=== PATIENT | female | born 1955 | race Caucasian/White ===

== ENCOUNTER 2024-05-16 18:29 | Inpatient (IN) | payer MEDICARE, MEDICAID ==
[~2024-05-16] VITALS: Ht 162.6 cm; Wt 68.0 kg
[2024-05-16] MEDS ORDERED: heparin 10,000 units/1 ML INJ IV PRN (19:15)
[2024-05-16] MEDS ORDERED: heparin 25,000 UNIT/250ml bag 250 ML IV PRN (19:15)
[2024-05-16 19:31] LABS: BASOPHILS % (AUTO) 0.3 % (0-1); EOSINOPHILS % (AUTO) 0 % (0-6); HEMATOCRIT 40.7 % (35.0-45.0); HEMOGLOBIN 13.7 g/dl (12.0-16.0); LYMPHOCYTES # (AUTO) 0.7 X10'3 (1.1-4.8); LYMPHOCYTES % (AUTO) 6.7 % (21-51); MEAN CORPUSCULAR HEMOGLOBIN 31.4 PG (27.0-31.0); MEAN CORPUSCULAR HGB CONC 33.6 g/dL (33.0-36.5); MEAN CORPUSCULAR VOLUME 93.5 FL (78-98); MEAN PLATELET VOLUME 8.1 FL (7.4-10.4); MONOCYTES % (AUTO) 0.5 % (2-12); NEUTROPHILS # (AUTO) 9.4 X10'3 (1.8-7.7); NEUTROPHILS % (AUTO) 92.5 % (42-75); PLATELET COUNT 331 X10'3 (140-440); RED BLOOD COUNT 4.36 X10'6 (4.20-5.60); RED CELL DISTRIBUTION WIDTH 14.6 % (11.5-14.5); WHITE BLOOD COUNT 10.2 X10'3 (4.5-11.0)
[2024-05-16 19:42] LABS: APTT 54 SECONDS (22-32); INR 1.1 INR; PROTHROMBIN TIME 11.2 SECONDS (9.0-12.0)
[2024-05-16 19:46] LABS: ALANINE AMINOTRANSFERASE 31 U/L (12-78); ALKALINE PHOSPHATASE 98 IU/L (46-116); ANION GAP 8 (8-16); ASPARTATE AMINO TRANSFERASE 22 U/L (10-37); BILIRUBIN,TOTAL 0.3 MG/DL (0.1-1.0); BLOOD UREA NITROGEN 10 MG/DL (7-18); BUN/CREATININE RATIO 13.3 (10.0-20.0); CALCIUM 9.8 MG/DL (8.5-10.1); CHLORIDE 102 MMOL/L (99-107); CREATININE 0.75 MG/DL (0.40-0.90); GLUCOSE 154 MG/DL (70-104); POTASSIUM 4.4 MMOL/L (3.5-5.1); SODIUM 141 MMOL/L (135-145); TOTAL CARBON DIOXIDE 31.4 MMOL/L (24-32); TOTAL PROTEIN 8.2 G/DL (6.4-8.2); eCRCL 62 ML/MIN; eGFR 77 ML/MIN
[2024-05-16] MEDS: MESSAGE TO NURSING IV ONE (19:51)
[2024-05-16] MEDS: HEPARIN DRIP INITAL BOLUS --- DO NOT GIVE/ORDER MC ONE (19:51)
[2024-05-16] MEDS: heparin 25,000 UNIT/250ml bag 250 ML IV PRN (19:52)
[2024-05-16 19:54] LABS: PRO BRAIN NATRIURETIC PEPTIDE 1027 PG/ML (0-125)
[2024-05-16] MEDS ORDERED: magnesium sulf-water 2g/50mL 50 ML IV PRN (21:00)
[2024-05-16] MEDS ORDERED: potassium Cl 40MEQ/1/2NS 520ml 520 ML IV PRN (21:00)
[2024-05-16] MEDS ORDERED: ondansetron/PF 4mg/2ml inj IV PRN (21:00)
[2024-05-16] MEDS ORDERED: magnesium hydroxide 30ml (MOM) UD suspension PO PRN (21:00)
[2024-05-16] MEDS ORDERED: morphine 2 MG/ML inj. syringe IV PRN ×2 (21:00)
[2024-05-16] MEDS ORDERED: magnesium sulf-water 4G/100mL 100 ML IV PRN (21:00)
[2024-05-16] MEDS ORDERED: mag hydrox/Alum hydrox/simeth 30ml oral suspension PO PRN (21:00)
[2024-05-16] MEDS ORDERED: magnesium Cl slow-release 64mg tablet PO PRN (21:00)
[2024-05-16] MEDS ORDERED: potassium Cl 20 mEq SR tablet PO PRN ×2 (21:00)
[2024-05-16] MEDS: PERFLUTREN PROTEIN-A MICROSPHR (Optison) 0.22 MG/ML 3ML VIAL IV ONE (21:26)
[2024-05-16] MEDS ORDERED: metoprolol tartrate 50mg tablet PO SCH (22:00)
[2024-05-16] MEDS: ipratropium/albuterol 3ml nebule NEB PRN (22:48)
[2024-05-16 22:49] VITALS: PULSE 85; RESP 16; O2SAT 97
[2024-05-16 22:55] VITALS: PULSE 88; RESP 20; O2SAT 97
[2024-05-16] MEDS ORDERED: metoprolol tartrate 25mg tablet PO SCH (23:05)
[2024-05-16] MEDS: metoprolol tartrate 25mg tablet PO SCH (23:13)
[2024-05-16] MEDS ORDERED: AMLO5TAB PO (23:45)
[2024-05-16] MEDS ORDERED: BUDE10.32 (23:45)
[2024-05-16] MEDS ORDERED: LEVO100C4 PO (23:55)
[2024-05-16] MEDS ORDERED: HYDR-3686 PO (23:55)
[2024-05-16] MEDS ORDERED: ALPR-624 PO (23:55)
[2024-05-16] MEDS ORDERED: ALEN70TA60 PO (23:55)
[2024-05-16] MEDS ORDERED: OMEP40CA21 PO (23:55)
[2024-05-16] MEDS ORDERED: TRAZ-256 PO (23:55)
[2024-05-16] MEDS ORDERED: LOSA100T58 PO (23:55)
[2024-05-17] VITALS (21 sets, daily range): BP systolic 106–142; BP diastolic 65–91; PULSE 62–101; RESP 13–23; TEMP 96.9–98.1; O2SAT 92–98
[2024-05-17] MEDS: acetaminophen 325mg tablet PO PRN (01:08)
[2024-05-17] MEDS: heparin 10,000 units/1 ML INJ IV PRN (01:57)
[2024-05-17] MEDS: MESSAGE TO NURSING IV ONE ×3 (02:17→16:10)
[2024-05-17 07:36] LABS: BASOPHILS % (AUTO) 0.2 % (0-1); EOSINOPHILS % (AUTO) 0 % (0-6); HEMATOCRIT 39.7 % (35.0-45.0); HEMOGLOBIN 13.1 g/dl (12.0-16.0); LYMPHOCYTES # (AUTO) 1.4 X10'3 (1.1-4.8); LYMPHOCYTES % (AUTO) 11.2 % (21-51); MEAN CORPUSCULAR HGB CONC 33.1 g/dL (33.0-36.5); MEAN CORPUSCULAR VOLUME 93.6 FL (78-98); MEAN PLATELET VOLUME 8.1 FL (7.4-10.4); MONOCYTES # (AUTO) 1.1 X10'3 (0-0.9); MONOCYTES % (AUTO) 8.9 % (2-12); NEUTROPHILS # (AUTO) 9.6 X10'3 (1.8-7.7); NEUTROPHILS % (AUTO) 79.7 % (42-75); PLATELET COUNT 343 X10'3 (140-440); RED BLOOD COUNT 4.24 X10'6 (4.20-5.60); RED CELL DISTRIBUTION WIDTH 14.9 % (11.5-14.5); WHITE BLOOD COUNT 12.1 X10'3 (4.5-11.0)
[2024-05-17] MEDS: K and/or MAG REPLACEMENT MC SCH (08:00)
[2024-05-17 08:23] LABS: HEMOGLOBIN A1C 5.6 % (4.5-6.2)
[2024-05-17 08:24] LABS: THYROID STIMULATING HORMONE 0.29 ulU/ml (0.34-4.50); TOTAL CARBON DIOXIDE 31.1 MMOL/L (24-32)
[2024-05-17 08:33] LABS: ALANINE AMINOTRANSFERASE 29 U/L (12-78); ALBUMIN 3.8 G/DL (3.4-5.0); ALKALINE PHOSPHATASE 90 IU/L (46-116); ANION GAP 7 (8-16); ASPARTATE AMINO TRANSFERASE 31 U/L (10-37); BILIRUBIN,TOTAL 0.4 MG/DL (0.1-1.0); BLOOD UREA NITROGEN 14 MG/DL (7-18); BUN/CREATININE RATIO 20.3 (10.0-20.0); CALCIUM 9.7 MG/DL (8.5-10.1); CHLORIDE 103 MMOL/L (99-107); CHOL/HDL RATIO 2.9 (0.00-4.99); CHOLESTEROL 246 MG/DL (0-200); CREATININE 0.69 MG/DL (0.40-0.90); GLUCOSE 109 MG/DL (70-104); HDL CHOLESTEROL 85 MG/DL (35-60); LDL CHOLESTEROL 136 MG/DL (50-100); MAGNESIUM 2.1 MG/DL (1.5-2.4); POTASSIUM 4.1 MMOL/L (3.5-5.1); SODIUM 141 MMOL/L (135-145); TOTAL PROTEIN 7.8 G/DL (6.4-8.2); TRIGLYCERIDES 85 MG/DL (20-135); eCRCL 67 ML/MIN; eGFR 85 ML/MIN
[2024-05-17] MEDS: pantoprazole 40mg Tablet.DR PO SCH (08:37)
[2024-05-17] MEDS: aspirin 81mg, enteric-coated 1 TAB TABLET.DR PO SCH (08:37)
[2024-05-17] MEDS: lisinopril 5mg tablet PO SCH (08:38)
[2024-05-17] MEDS: atorvastatin 20mg tablet PO SCH (08:38)
[2024-05-17] MEDS: docusate sod 100mg capsule PO SCH (08:38)
[2024-05-17] MEDS ORDERED: nitroGLYCERIN 0.4mg SUBLingual tab SL PRN (08:55)
[2024-05-17] MEDS ORDERED: LORazepam 2 mg/ml vial IV PRN (13:05)
[2024-05-17] MEDS ORDERED: midazolam 1 mg/ML 2ml injection ONE (16:35)
[2024-05-17] MEDS ORDERED: fentaNYL/PF 50MCG/1 ML 2ML syringe ONE (16:35)
[2024-05-17] MEDS ORDERED: LIDOcaine 1% (10mg/ml) 2ml vial ONE (16:35)
[2024-05-17] MEDS ORDERED: verapamil 2.5 mg/ml inj IV ONE (16:35)
[2024-05-17] MEDS ORDERED: iohexol 350 MG/ML 50ML vial IV ONE (16:36)
[2024-05-17] MEDS ORDERED: heparin 1,000unit/ml 10ml vial 10 ML ONE (16:36)
[2024-05-17] MEDS ORDERED: iohexol 350MG/ML 100ml bottle IV ONE (16:36)
[2024-05-17] MEDS ORDERED: nitroGLYCERIN 500mcg/5mL D5W 10 ML IV ONE (16:37)
[2024-05-17 18:12] LABS: ISTAT HGB ART 13.9 g/dl (12.0-16.0); ISTAT Hct ART 41 %PCV (35-45); ISTAT O2 SATURATION ARTERIAL 92 % (95-98); ISTAT SOURCE ART
[2024-05-17] MEDS: ipratropium 0.5 MG/2.5ML nebule IH SCH (20:04)
[2024-05-17] MEDS: potassium Cl 20 mEq SR tablet PO ONE (21:01)
[2024-05-17] MEDS: furosemide 20 MG/2 ML vial IV ONE (21:50)
[2024-05-17] MEDS: carvedilol 6.25mg tablet PO SCH (23:11)
[2024-05-17] MEDS: levoTHYROXINE 100mcg tablet PO SCH (23:12)
[2024-05-18] VITALS (14 sets, daily range): BP systolic 97–127; BP diastolic 54–96; PULSE 62–106; RESP 12–22; TEMP 97–98; O2SAT 94–98
[2024-05-18] MEDS: ALPRAZolam 0.25mg tablet PO PRN (00:17)
[2024-05-18] MEDS: traZODone 50mg tablet PO SCH (00:17)
[2024-05-18 07:00] LABS: BASOPHILS # (AUTO) 0.1 X10'3 (0-0.2); BASOPHILS % (AUTO) 0.6 % (0-1); EOSINOPHILS # (AUTO) 0.2 X10'3 (0-0.9); EOSINOPHILS % (AUTO) 1.7 % (0-6); HEMATOCRIT 42.9 % (35.0-45.0); HEMOGLOBIN 14.8 g/dl (12.0-16.0); LYMPHOCYTES # (AUTO) 2.5 X10'3 (1.1-4.8); MEAN CORPUSCULAR HEMOGLOBIN 32.3 PG (27.0-31.0); MEAN CORPUSCULAR HGB CONC 34.5 g/dL (33.0-36.5); MEAN CORPUSCULAR VOLUME 93.6 FL (78-98); MEAN PLATELET VOLUME 8.7 FL (7.4-10.4); MONOCYTES % (AUTO) 8.4 % (2-12); NEUTROPHILS # (AUTO) 7.6 X10'3 (1.8-7.7); NEUTROPHILS % (AUTO) 67.3 % (42-75); PLATELET COUNT 329 X10'3 (140-440); RED BLOOD COUNT 4.58 X10'6 (4.20-5.60); RED CELL DISTRIBUTION WIDTH 14.5 % (11.5-14.5); WHITE BLOOD COUNT 11.4 X10'3 (4.5-11.0)
[2024-05-18 07:45] LABS: ALANINE AMINOTRANSFERASE 38 U/L (12-78); ALBUMIN 3.7 G/DL (3.4-5.0); ALBUMIN/GLOBULIN RATIO 0.9 (1.1-1.5); ALKALINE PHOSPHATASE 93 IU/L (46-116); ANION GAP 6 (8-16); ASPARTATE AMINO TRANSFERASE 58 U/L (10-37); BILIRUBIN,TOTAL 0.7 MG/DL (0.1-1.0); BLOOD UREA NITROGEN 21 MG/DL (7-18); CALCIUM 9.3 MG/DL (8.5-10.1); CHLORIDE 100 MMOL/L (99-107); CREATININE 0.84 MG/DL (0.40-0.90); FREE T4 (FREE THYROXINE) 1.07 NG/DL (0.73-1.40); GLUCOSE 107 MG/DL (70-104); POTASSIUM 3.6 MMOL/L (3.5-5.1); PRO BRAIN NATRIURETIC PEPTIDE 8529 PG/ML (0-125); SODIUM 136 MMOL/L (135-145); TOTAL CARBON DIOXIDE 30.2 MMOL/L (24-32); TOTAL PROTEIN 7.8 G/DL (6.4-8.2); eCRCL 55 ML/MIN; eGFR 67 ML/MIN
[2024-05-18] MEDS: FORMOTEROL FUMARATE IH SCH (08:00)
[2024-05-18] MEDS ORDERED: ALENDRONATE SODIUM 70 MG PO SCH (08:00)
[2024-05-18] MEDS: BUDESONIDE IH SCH (08:00)
[2024-05-18 08:25] LABS: ISTAT HGB MIX 13.9 g/dl (12.0-16.0); ISTAT Hct MIX 41 %PCV (35-45); ISTAT O2 SATURATION MIX VENOUS 56 % (60-80); ISTAT SOURCE VEN
[2024-05-18] MEDS: pantoprazole 40mg Tablet.DR PO SCH (08:43)
[2024-05-18] MEDS: losartan 50mg tablet PO SCH (08:43)
[2024-05-18] MEDS: potassium Cl 20 mEq SR tablet PO SCH (08:44)
[2024-05-18] MEDS: furosemide 20 MG/2 ML vial IV SCH (08:44)
[2024-05-18] MEDS: hydrOXYzine 25 MG tablet PO SCH (08:44)
[2024-05-18] MEDS: atorvastatin 20mg tablet PO SCH (08:44)
[2024-05-18] MEDS: budesonide 0.5mg/2ml UD nebule IH SCH (09:46)
[2024-05-18] MEDS: spironolactone 25 MG tablet PO SCH (09:56)
[2024-05-18] MEDS ORDERED: CARV6.253 PO (10:17)
[2024-05-18] MEDS ORDERED: CEFD300C3 PO (10:17)
[2024-05-18] MEDS ORDERED: ASPI-1071 PO (10:17)
[2024-05-18] MEDS ORDERED: PRED10TA23 PO (10:17)
[2024-05-18] MEDS ORDERED: CLOP-32 PO (10:18)
[2024-05-18] MEDS ORDERED: POTA-192 PO (16:12)
[2024-05-18] MEDS ORDERED: SPIR25TA PO (16:12)
[2024-05-18] MEDS ORDERED: ATOR20TA66 PO (16:12)
[2024-05-18] MEDS ORDERED: FURO-150 PO (16:12)
[2024-05-18] MEDS: furosemide 40mg/4ml inj IV SCH (20:12)
[2024-05-18] MEDS: guaiFENesin 200 MG/10 ML oral syrup UD cup PO PRN (20:12)
[2024-05-19 02:00] VITALS: BP 93/69; PULSE 92; RESP 12; TEMP 97.4; O2SAT 99
[2024-05-19 06:00] VITALS: BP 98/64; PULSE 93; RESP 12; TEMP 97.1; O2SAT 94
[2024-05-19 06:19] LABS: BASOPHILS # (AUTO) 0.1 X10'3 (0-0.2); BASOPHILS % (AUTO) 0.8 % (0-1); EOSINOPHILS # (AUTO) 0.4 X10'3 (0-0.9); EOSINOPHILS % (AUTO) 3.4 % (0-6); HEMATOCRIT 46.4 % (35.0-45.0); HEMOGLOBIN 15.7 g/dl (12.0-16.0); LYMPHOCYTES # (AUTO) 2.6 X10'3 (1.1-4.8); LYMPHOCYTES % (AUTO) 24.1 % (21-51); MEAN CORPUSCULAR HEMOGLOBIN 31.8 PG (27.0-31.0); MEAN CORPUSCULAR HGB CONC 33.9 g/dL (33.0-36.5); MEAN CORPUSCULAR VOLUME 93.8 FL (78-98); MEAN PLATELET VOLUME 8.6 FL (7.4-10.4); MONOCYTES # (AUTO) 1.1 X10'3 (0-0.9); MONOCYTES % (AUTO) 10.4 % (2-12); NEUTROPHILS # (AUTO) 6.5 X10'3 (1.8-7.7); NEUTROPHILS % (AUTO) 61.3 % (42-75); PLATELET COUNT 347 X10'3 (140-440); RED BLOOD COUNT 4.94 X10'6 (4.20-5.60); RED CELL DISTRIBUTION WIDTH 14.7 % (11.5-14.5); WHITE BLOOD COUNT 10.6 X10'3 (4.5-11.0)
[2024-05-19 06:57] LABS: ALANINE AMINOTRANSFERASE 44 U/L (12-78); ALBUMIN 3.8 G/DL (3.4-5.0); ALKALINE PHOSPHATASE 96 IU/L (46-116); ANION GAP 8 (8-16); ASPARTATE AMINO TRANSFERASE 43 U/L (10-37); BILIRUBIN,TOTAL 0.7 MG/DL (0.1-1.0); BLOOD UREA NITROGEN 32 MG/DL (7-18); BUN/CREATININE RATIO 33.3 (10.0-20.0); CALCIUM 9.7 MG/DL (8.5-10.1); CHLORIDE 101 MMOL/L (99-107); CREATININE 0.96 MG/DL (0.40-0.90); GLUCOSE 117 MG/DL (70-104); POTASSIUM 3.9 MMOL/L (3.5-5.1); SODIUM 138 MMOL/L (135-145); TOTAL CARBON DIOXIDE 28.9 MMOL/L (24-32); TOTAL PROTEIN 7.7 G/DL (6.4-8.2); eCRCL 48 ML/MIN; eGFR 58 ML/MIN
[2024-05-19 08:00] VITALS: RESP 16; O2SAT 94
[2024-05-19 08:21] VITALS: PULSE 89; RESP 18; O2SAT 95
[2024-05-19 08:33] VITALS: PULSE 89; RESP 18
[2024-05-19 11:00] VITALS: BP 114/75; PULSE 100; RESP 17; TEMP 97.4; O2SAT 94
== END 2024-05-19 13:28 | disposition home or self-care (01) | DRG 280 ==
LOC: ER 18:31 → ED HOLD 21:01 → PCU 3S 05-17 00:35
PROVIDERS: ADMIT Internal Medicine; ATTEND Nurse Practitioner Family
PROC: 4A023N8 Measurement of Cardiac Sampling and Pressure, Bilateral, Percutaneous Approach (ICD-10-PCS; principal; 2024-05-17)
PROC: B2111ZZ Fluoroscopy of Multiple Coronary Arteries using Low Osmolar Contrast (ICD-10-PCS; 2024-05-17)
PROC: B2151ZZ Fluoroscopy of Left Heart using Low Osmolar Contrast (ICD-10-PCS; 2024-05-17)
DX: I21.4 Non-ST elevation (NSTEMI) myocardial infarction (principal); I50.33 Acute on chronic diastolic (congestive) heart failure; R73.9 Hyperglycemia, unspecified; I25.5 Ischemic cardiomyopathy; J44.9 Chronic obstructive pulmonary disease, unspecified; E78.5 Hyperlipidemia, unspecified; E89.0 Postprocedural hypothyroidism; F41.9 Anxiety disorder, unspecified; I11.0 Hypertensive heart disease with heart failure; Z90.49 Acquired absence of other specified parts of digestive tract; Z88.5 Allergy status to narcotic agent; Z87.891 Personal history of nicotine dependence; Z90.710 Acquired absence of both cervix and uterus; Z85.820 Personal history of malignant melanoma of skin; Z99.81 Dependence on supplemental oxygen
CPT/HCPCS: 36415; 71045; 76937; 80053; 80061; 82803; 83036; 83735; 83880; 84439; 84443; 84484; 85014; 85025; 85347; 85610; 85730; 87081; 93005; 93306; 93460; 94640; 94760; 99152; 99153; 99291; A4615; A6258; C1725; C1751; C1769; C1894; G0378; J1644; J1940; J2003; J2250; J3010; J3490; J7030; Q0177; Q9967